=== PATIENT | female | born 1975 | race African-American/Black ===

== ENCOUNTER 2023-11-21 14:58 | Emergency (ER) | payer MEDICAID ==
[~2023-11-21] VITALS: Ht 160 cm; Wt 78.0 kg
[2023-11-21 15:05] VITALS: O2SAT 100
[2023-11-21 15:38] LABS: BASOPHILS % 0.5 % (0.0-2.0); EOSINOPHILS % 1.3 % (0.0-5.0); HEMATOCRIT. 37.3 % (36.0-48.0); HEMOGLOBIN. 11.7 g/dL (12.0-16.0); LYMPHOCYTES % 18.3 % (20.0-50.0); MEAN CORPUSCULAR HEMOGLOBIN 25.8 pg (28.0-32.0); MEAN CORPUSCULAR HGB CONC 31.3 g/dL (31.0-37.0); MEAN CORPUSCULAR VOLUME 82.3 fL (81.0-99.0); MONOCYTES % 9.5 % (2.0-8.0); NEUTROPHILS % 70.4 % (40.0-76.0); PLATELET 237 x1000/uL (130-400); RED BLOOD CELL COUNT 4.53 mill/uL (4.2-5.4); RED CELL DISTRIBUTION WIDTH 14.2 % (11.6-14.6); WHITE BLOOD COUNT 6.3 x1000/uL (4.5-11.0)
[2023-11-21 15:53] LABS: ALANINE AMINOTRANSFERASE 9 IU/L (10-49); ASPARTATE AMINOTRANSFERASE 17 IU/L (<34); BILIRUBIN TOTAL 0.6 mg/dL (0.1-1.0); CALCIUM 8.4 mg/dL (8.7-10.4); CARBON DIOXIDE 29 mEq/L (21-32); CHLORIDE 104 mEq/L (98-107); CREATININE 0.6 mg/dL (0.6-1.0); GLUCOSE 79 mg/dL (70-105); POTASSIUM 3.8 mEq/L (3.5-5.1); PROTEIN TOTAL 7.4 g/dL (6.0-8.3); SODIUM 139 mEq/L (136-145); UREA NITROGEN BLOOD 14 mg/dL (9-23)
[2023-11-21 15:55] LABS: TROPONIN I HIGH SENSITIVITY < 4 ng/L (3.0-34)
[2023-11-21 16:24] LABS: CLARITY URINE CLOUDY (CLEAR); COLOR URINE YELLOW (YELLOW); GLUCOSE URINE NEGATIVE (NEGATIVE); KETONES URINE TRACE (NEGATIVE); LEUKOCYTE ESTERASE URINE NEGATIVE (NEGATIVE); NITRITE URINE NEGATIVE (NEGATIVE); OCCULT BLOOD URINE NEGATIVE (NEGATIVE); PROTEIN URINE NEGATIVE (NEGATIVE); SPECIFIC GRAVITY URINE 1.002 (1.005-1.030); UROBILINOGEN URINE 0.2 E.U./dL (0.2-1.0)
[2023-11-21 16:43] LABS: BACTERIA URINE 1+; RBC URINE 0-2 /hpf (0-2); SQUAMOUS EPITHELIAL CELL URINE 1+ /lpf (RARE/1+); WBC URINE 0-2 /hpf (0-2)
[2023-11-21 17:55] VITALS: BP 121/83; PULSE 76; RESP 18; TEMP 98.7
== END 2023-11-21 18:18 | disposition home or self-care (01) ==
LOC: ER 14:58
DX: R55 Syncope and collapse (principal); F41.9 Anxiety disorder, unspecified; J45.909 Unspecified asthma, uncomplicated; F32.A Depression, unspecified; I11.9 Hypertensive heart disease without heart failure; G20.A1 Parkinson's disease without dyskinesia, without mention of fluctuations; Z85.9 Personal history of malignant neoplasm, unspecified; Z98.890 Other specified postprocedural states
CPT/HCPCS: 80053; 81003; 81025; 82962; 85025; 84484; 36415; 71045; 93005; 99285; Z7610

== ENCOUNTER 2024-07-20 09:16 | Emergency (ER) | payer MEDICAID ==
[~2024-07-20] VITALS: Ht 162.6 cm; Wt 81.0 kg
[2024-07-20] MEDS ORDERED: PREDNISONE 20MG TABLET PO STA (09:52)
[2024-07-20] MEDS: IPRATROPIUM BROMIDE (0.02%) 0.5MG/2.5ML NEB HHN STA (10:10)
[2024-07-20] MEDS: ALBUTEROL (0.083%) 2.5MG/3ML NEB HHN STA (10:11)
[2024-07-20 10:12] VITALS: PULSE 105; RESP 18; O2SAT 96
[2024-07-20] MEDS ORDERED: ALBU6.7H15 INH (10:46)
[2024-07-20] MEDS ORDERED: P50 MT (10:46)
[2024-07-20 11:08] VITALS: BP 132/79; PULSE 93; RESP 20; TEMP 36.89184; O2SAT 98
== END 2024-07-20 11:34 | disposition home or self-care (01) ==
LOC: ER 09:25
DX: J45.901 Unspecified asthma with (acute) exacerbation (principal); I10 Essential (primary) hypertension; F41.9 Anxiety disorder, unspecified; I51.9 Heart disease, unspecified; F32.A Depression, unspecified; Z20.822 Contact with and (suspected) exposure to COVID-19; Z98.890 Other specified postprocedural states
CPT/HCPCS: 94640; 99283; 87426; J7512; Z7610 ×5